=== PATIENT | female | born 1930 | race Caucasian/White ===

== ENCOUNTER 2016-06-10 07:12 | Day surgery (SDC) | payer OTHER ==
[~2016-06-10 07:12] MED LIST: ARTIFICIAL TEAR15 M1 BOTH EYES; ASPERCREME 1035.4 GM TP; ASPIR 8181 M1 PO; ASPIR-TRIN325 M1 PO; ATROVENT 0.06%15 ML BOTH NARES; BUSPAR10 MG PO; CETAPHIL CREAM454 GM TP; COUGH SYRU100 MG/5 M PO; CYMBALTA20 MG PO; DULCOLAX10 MG PR; DULCOLAX5 MG PO; DUONEB 2.5-0.5 M3 ML AEROSOL; GLIPIZIDE XL5 MG PO; GLIPIZIDE5 MG PO; GLUCAGON1 MG IM; GLUCOSE GEL15 GM PO; JANUVIA25 M1 PO; LIDOCREAM15 GM TP; LORATADINE10 M2 PO; MIRALAX17 GM PO; MUCINEX600 MG PO; NASACORT10.8 ML BOTH NARES; NEPHRO-VITE,1 TABLET PO; NIFEREX-150,FE150 MG PO; NITROSTAT0.4 MG SL; NORVASC5 MG PO; NOVOLIN,HU100 UNITS1 SC; NYAMYC60 GM TP; OMEGA-31000 M1 PO; REFRESH LI300 DROP/1 BOTH EYES; RENVELA800 MG PO; REQUIP1 MG PO; SENOKOT S,PE1 TABLET PO; SINGULAIR10 MG PO; TYLENOL REGULA325 MG PO; VITAMIN D1000 INTUN PO; [UNRECOGNIZED DRUG - OTHER] BOTH NARES
[2016-06-10 08:00] LABS: POINT-OF-CARE METER ID UU13113696
[2016-06-10 09:04] LABS: METH RESISTANT S AUREUS PCR NEGATIVE (NEGATIVE); PROBE CHECK PASS; SPECIMEN PROCESSING CONTROL PASS
== END 2016-06-10 10:05 ==
LOC: CATH 07:12
PROVIDERS: Surgery
DX: T82.858A Stenosis of other vascular prosthetic devices, implants and grafts, initial encounter (principal); Y83.2 Surgical operation with anastomosis, bypass or graft as the cause of abnormal reaction of the patient, or of later complication, without mention of misadventure at the time of the procedure; I12.0 Hypertensive chronic kidney disease with stage 5 chronic kidney disease or end stage renal disease; E11.22 Type 2 diabetes mellitus with diabetic chronic kidney disease; N18.6 End stage renal disease; Z99.2 Dependence on renal dialysis; E66.01 Morbid (severe) obesity due to excess calories; Z79.82 Long term (current) use of aspirin; Z79.4 Long term (current) use of insulin; Z91.013 Allergy to seafood; Z83.3 Family history of diabetes mellitus; Z82.49 Family history of ischemic heart disease and other diseases of the circulatory system; Z99.3 Dependence on wheelchair
CPT/HCPCS: 82948; 87641; C1725; C1769; C1894; J1644; J2250; J3010

== ENCOUNTER 2017-03-08 12:13 | Day surgery (SDC) | payer OTHER ==
[2017-03-08 13:02] LABS: POINT-OF-CARE METER ID UU13113696
[2017-03-08 14:18] LABS: METH RESISTANT S AUREUS PCR NEGATIVE (NEGATIVE); PROBE CHECK PASS; SPECIMEN PROCESSING CONTROL PASS
== END 2017-03-08 14:35 ==
LOC: CATH 12:13
PROVIDERS: Surgery
PROC: 057Y3ZZ Dilation of Upper Vein, Percutaneous Approach (ICD-10-PCS; principal; 2017-03-08)
DX: T82.858A Stenosis of other vascular prosthetic devices, implants and grafts, initial encounter (principal); N18.6 End stage renal disease; Z99.2 Dependence on renal dialysis; Z86.711 Personal history of pulmonary embolism; Z79.01 Long term (current) use of anticoagulants; Z68.41 Body mass index [BMI] 40.0-44.9, adult
CPT/HCPCS: 82948; 87641; C1725; C1769; C1894; J1644; J2250; J3010

== ENCOUNTER 2017-09-13 07:44 | Day surgery (SDC) | payer OTHER ==
[~2017-09-13] VITALS: Ht 165.1 cm; Wt 110.0 kg
[~2017-09-13 07:44] MED LIST changes: +AMBIEN5 MG PO; +AQUAPHOR OINTM105 GM TP; +BENGAY GREASELE57 GM TP; +BREO ELLIPTA I1 EACH IH; +CLARITIN10 M3 PO; +FLEET MINERAL133 ML PR; +LORTAB 5-325 M1 EACH PO; +METAMUCIL0.4 GM PO; +METOCLOPRAMIDE H5 MG PO; +PANTOPRAZOLE SO40 MG PO; +PROAIR RESPICL90 MCG IH; +ROBITUSSIN AC,T10 ML PO; +SEROQUEL12.5 MG PO; +SIMETHICONE125 M1 PO; +TUSSIN CF MULT118 ML PO; -VITAMIN D1000 INTUN PO; +VITAMIN D32000 UNI1 PO; +XANAX0.25 MG PO
== END 2017-09-13 10:10 | disposition home or self-care (01) ==
LOC: CATH 07:44
PROVIDERS: Surgery
DX: T82.858A Stenosis of other vascular prosthetic devices, implants and grafts, initial encounter (principal); Y83.2 Surgical operation with anastomosis, bypass or graft as the cause of abnormal reaction of the patient, or of later complication, without mention of misadventure at the time of the procedure; N18.6 End stage renal disease; Z99.2 Dependence on renal dialysis
CPT/HCPCS: 82948; 87641; C1725; C1769; C1874; C1894; J1644; J2250; J3010